=== PATIENT | female | born 1990 | race Caucasian/White ===

== ENCOUNTER 2018-02-15 22:16 | Emergency (ER) | payer BC ==
--- NOTE | 2018-02-15 22:41 | EDPHY ---
H & P Stated Complaint: tingling face & hands Time Seen by Provider: 02/15/18 22:23 HPI/ROS: HPI The patient presents with an episode that began at about 8:30 p.m. While she was sitting after dinner and began to feel disoriented. She then felt her lips and face go numb as well as her arms. She developed a sensation of chest tightness with mild shortness of breath and felt like her breath was catching. This lasted for about 1 hr. She tried breathing exercises though this did not help. She has traveling in just arrive to [place] from [place] yesterday. There she had a similar episode as well as some palpitations. She does have a history of panic attacks which have occurred in claustrophobic situation. REVIEW OF SYSTEMS 10 systems were reviewed and negative with the exception of the elements mentioned in the history of present illness. PMHx: History of ovarian cyst, kidney stone, seek a virus Soc Hx: No alcohol use, no marijuana use, no drug use, originally from [place], currently traveling FHx: Mother with fibromyalgia PHYSICAL General Appearance: Alert, no distress Eyes: Pupils equal and round no pallor or injection ENT, Mouth: Mucous membranes moist Respiratory: There are no retractions, lungs are clear to auscultation Cardiovascular: Regular rate and rhythm Gastrointestinal: Abdomen is soft and non-tender, no masses, bowel sounds normal Neurological: A&O, moves all extremities Skin: Warm and dry, no rashes Musculoskeletal: Neck is supple non tender Extremities: symmetrical, full range of motion Psychiatric: Patient is oriented X 3, there is no agitation Source: Patient Exam Limitations: No limitations - Personal History LMP (Females 10-55): IUD In Place Current Tetanus/Diphtheria Vaccine: Yes Current Tetanus Diphtheria and Acellular Pertussis (TDAP): Yes - Medical/Surgical History Hx Asthma: No Hx Chronic Respiratory Disease: No Hx Diabetes: No Hx Cardiac Disease: No Hx Renal Disease: No Hx Cirrhosis: No Hx Alcoholism: No Hx HIV/AIDS: No Hx Splenectomy or Spleen Trauma: No Other PMH: kidney stone ovarian cyst murmur - Social History Smoking Status: Never smoked Constitutional: Initial Vital Signs Temperature (C) 36.4 C 02/15/18 22:18 Heart Rate 104 H 02/15/18 22:18 Respiratory Rate 24 H 02/15/18 22:18 Blood Pressure 124/94 H 02/15/18 22:18 O2 Sat (%) 98 02/15/18 22:18 O2 Delivery Mode Room Air Allergies/Adverse Reactions: latex Allergy (Verified 02/15/18 22:20) Medical Decision Making - Diagnostics EKG Interpretation: EKG: Complete interpretation has been separately recorded in the [facility] archive. Summary impression: Normal sinus rhythm Differential Diagnosis: 27-year-old female relatively healthy presents with acute onset of disorientation paresthesias of her lips, face, arms, chest tightness and shortness of breath, now mostly resolved. I suspect anxiety attack. Other possibilities include arrhythmia, ACS. Symptoms resolved in the emergency department. EKG was normal. Patient felt well enough for discharge and was discharged home. Departure - Departure Disposition: Home, Routine, Self-Care Clinical Impression: Anxiety attack Condition: Good Instructions: Anxiety (ED), Anxiolysis in Adults (ED) Referrals: Yaya Hemphill MD [Medical Doctor] - As per Instructions
[2018-02-15 23:24] VITALS: BP 105/64
--- NOTE | 2018-02-16 05:24 | CPEKG ---
Test Reason : OPEN Blood Pressure : / mmHG Vent. Rate : 073 BPM Atrial Rate : 072 BPM P-R Int : 120 ms QRS Dur : 082 ms QT Int : 388 ms P-R-T Axes : 060 056 047 degrees QTc Int : 428 ms Sinus rhythm Confirmed by Oma Philip ([id number]) on 02/16/2018 5:23:40 AM Referred By: Confirmed By:Oma Philip
== END 2018-02-15 23:24 | disposition home or self-care (01) ==
DX: F41.0 Panic disorder [episodic paroxysmal anxiety] (principal)